=== PATIENT | female | born 1945 | race Caucasian/White ===

== ENCOUNTER 2017-02-07 11:54 | Outpatient (CLI) | payer MEDICARE, BC ==
--- OUTSIDE RECORDS SUMMARY | 2017-02-07 11:57 | XMS | Clinical Summary ---
:1945 Author Organization [facility] Address [address] [place] [address] Phone Care Team Providers Name Role Phone , Primary Care Provider Unavailable Allergies Not on File Current Medications Not on file Active Problems Not on file Social History Tobacco Use Types Packs/Day Years Used Date Never Assessed Sex Assigned at Date Recorded Not on file Last Filed Vital Signs Not on file Plan of Treatment Not on file Results Not on filefrom Last 3 Months
[2017-02-07] MEDS ORDERED: Heparin 1,000 UNITS/ML VIAL ONE (14:31)
--- NOTE | 2017-02-07 15:01 | NM ---
NUCLEAR MEDICINE MUGA SCAN: Date: 02/07/17 CLINICAL HISTORY: Malignant neoplasm of upper outer quadrant of the left breast. Encounter for follow-up after treatme nt for malignant neoplasm of left breast. RADIOPHARMACEUTICAL: 28.2 mCi technetium-99m tagged red cells IV. COMPARISON: 01/07/17. FINDINGS/IMPRESSION: Ejection fraction is calculated at 54.9%. Previous MUGA scan of 01/07/17 revealed ejection fraction of 58%. Slightly reduced LVEF at 54.9%. Correlate clinically. POS: GAMALIEL
== END 2017-02-07 11:55 | disposition home or self-care (01) ==
LOC: NM 11:54
PROVIDERS: ATTEND Internal Medicine Medical Oncology
DX: C50.412 Malignant neoplasm of upper-outer quadrant of left female breast (principal)
CPT/HCPCS: 78472; A9604; J1644

== ENCOUNTER 2017-05-31 08:29 | Outpatient (CLI) | payer MEDICARE, BC | END 2017-05-31 08:30 | disposition home or self-care (01) | LOC: BICMAMMO 08:29 | PROVIDERS: ATTEND Internal Medicine Medical Oncology | DX: Z85.3 Personal history of malignant neoplasm of breast (principal); R92.1 Mammographic calcification found on diagnostic imaging of breast; N64.59 Other signs and symptoms in breast; Z98.890 Other specified postprocedural states | CPT/HCPCS: G0204; G0279; 77066 ==

== ENCOUNTER 2017-08-02 13:19 | Outpatient (CLI) | payer MEDICARE, BC ==
--- NOTE | 2017-08-02 15:30 | CT ---
CT THORAX WITHOUT IV CONTRAST: INDICATIONS: History of thoracic aortic aneurysm. COMPARISON: None. FINDINGS: There is post procedural change, consistent with radiation therapy to the left breast, with some radi ation fibrotic change involving the left upper lobe. There is some architectural distortion and mass like density seen within the upper aspect of the left breast, with an additional nodule see within t he left axillary region. Comparison to recent diagnostic mammogram is recommended. There are scattered calcified lymph nodes within the left hilar region. There are thoracic aortic ca lcifications present. The ascending thoracic aorta measures 3.3 cm. The aortic arch measures 2.9 cm . The descending thoracic aorta, at the level of the right main pulmonary artery, measures 2.8 cm. There is some mild interstitial fibrotic change involving the right lower lobe. No suspicious pulmon holland nodule, pleural effusion, or pneumothorax evident. There is a right chest wall port in place. The upper abdomen is unremarkable for an acute abnormality. There is mild thoracic scoliosis. There is scattered degenerative and osteoarthritic change. IMPRESSION: 1. Mild ectasia of the ascending aorta. 2. Findings of prior granulomatous disease. 3. Densities seen within the left breast, which may be related to the patient's prior left breast ca ncer. Followup with most recent left breast diagnostic mammogram is recommended. 4. Radiation therapy changes to the left breast, as well as left upper lobe. 5. Mild interstitial fibrotic change involving the right lower lobe. 6. Findings of prior granulomatous disease. POS: GAMALIEL
== END 2017-08-02 13:20 | disposition home or self-care (01) ==
LOC: SCSCT 13:19
PROVIDERS: ATTEND Internal Medicine Cardiovascular Disease
DX: I71.2 Thoracic aortic aneurysm, without rupture (principal); I77.819 Aortic ectasia, unspecified site; N64.89 Other specified disorders of breast; Z51.0 Encounter for antineoplastic radiation therapy; Z92.3 Personal history of irradiation
CPT/HCPCS: 71250

== ENCOUNTER 2017-11-28 07:54 | Outpatient (CLI) | payer MEDICARE, BC | END 2017-11-28 07:55 | disposition home or self-care (01) | LOC: BICMAMMO 07:54 | PROVIDERS: ATTEND Internal Medicine Medical Oncology | DX: C50.412 Malignant neoplasm of upper-outer quadrant of left female breast (principal); N64.89 Other specified disorders of breast; Z98.890 Other specified postprocedural states | CPT/HCPCS: 77065; G0279 ==

== ENCOUNTER 2018-06-01 07:54 | Outpatient (CLI) | payer MEDICARE, BC | END 2018-06-01 07:55 | disposition home or self-care (01) | LOC: BICMAMMO 07:54 | PROVIDERS: ATTEND Internal Medicine Medical Oncology | DX: Z08 Encounter for follow-up examination after completed treatment for malignant neoplasm (principal); Z85.3 Personal history of malignant neoplasm of breast | CPT/HCPCS: 77066; G0279 ==

== ENCOUNTER 2018-07-18 09:50 | Outpatient (CLI) | payer MEDICARE, BC ==
--- NOTE | 2018-07-18 11:06 | BD ---
Exam: DEXA Bone Density History: Post-menopausal. Lumbar Spine: BMD (g/cm2) L1 0.886 T-Score: -0.9 L2 1.063 T-Score: 0.3 L3 0.977 T-Score: -1.0 L4 1.073 T-Score: 0.1 L1-L4 1.004 T-Score: -0.4 Femoral Neck: 0.550 T-Score: -2.7 Total Femur: 0.661 T-Score: -2.3 Impression: Osteoporosis of the left femoral neck with normal bone mineral density of the lumbar spine. POS: TPC
== END 2018-07-18 09:51 | disposition home or self-care (01) ==
LOC: BICMAMMO 09:50
PROVIDERS: ATTEND Internal Medicine Medical Oncology
DX: N95.0 Postmenopausal bleeding (principal); C50.412 Malignant neoplasm of upper-outer quadrant of left female breast; T38.6X5A Adverse effect of antigonadotrophins, antiestrogens, antiandrogens, not elsewhere classified, initial encounter; M81.0 Age-related osteoporosis without current pathological fracture
CPT/HCPCS: 77080

== ENCOUNTER 2019-06-04 08:01 | Outpatient (CLI) | payer MEDICARE, BC ==
--- NOTE | 2019-06-04 08:41 | MMO ---
Bilateral MAMMO Bilat Diag DDI+MITALI. CLINICAL HISTORY: Patient is 74 years old and is seen for diagnostic exam. The patient has no family history of breast cancer. The patient has a history of lumpectomy procedure revealed invasive ductal left breast carcinoma in June,; Ultrasound guided core biopsy procedure revealed invasive ductal left breast carcinoma in May, and moderately differentiated infiltrating ductal carcinoma. in the left breast in 2016. The patient has a history of left Ultrasound Guided Core Biopsy in May, and left Lumpectomy in May, - malignant. VIEWS: The views performed were: bilateral craniocaudal with tomosynthesis; bilateral mediolateral oblique with tomosynthesis; and bilateral mediolateral with tomosynthesis. FILMS COMPARED: The present examination has been compared to prior imaging studies performed at [facility] on 05/28/2016, 05/31/2017, 11/28/2017 and 06/01/2018. This study has been interpreted with the assistance of computer-aided detection. MAMMOGRAM FINDINGS: There are scattered fibroglandular densities. There are stable post operative changes seen in the left breast. There are no suspicious masses, suspicious calcifications, or new areas of architectural distortion. IMPRESSION: THERE IS NO MAMMOGRAPHIC EVIDENCE OF MALIGNANCY. A ROUTINE FOLLOW-UP MAMMOGRAM IN 1 YEAR IS RECOMMENDED. THE RESULTS OF THIS EXAM WERE SENT TO THE PATIENT. ACR BI-RADS Category 2 - Benign finding MAMMOGRAPHY NOTE: 1. A negative mammogram report should not delay a biopsy if a dominant of clinically suspicious mass is present. 2. Approximately 10% to 15% of breast cancers are not detected by mammography. 3. Adenosis and dense breasts may obscure an underlying neoplasm. Reported by: ROSARIO MC MD Electonically Signed: [id number]
== END 2019-06-04 08:02 | disposition home or self-care (01) ==
LOC: BICMAMMO 08:01
PROVIDERS: ATTEND Internal Medicine Medical Oncology
DX: C50.912 Malignant neoplasm of unspecified site of left female breast (principal); M81.8 Other osteoporosis without current pathological fracture
CPT/HCPCS: 77066; G0279

== ENCOUNTER 2019-07-20 08:04 | Outpatient (CLI) | payer MEDICARE, BC ==
--- NOTE | 2019-07-20 10:32 | BD ---
DEXA BONE MINERAL DENSITY STUDY: HISTORY: Osteoporosis screening. COMPARISON: DEXA from 2019. FINDINGS: Lumbar Spine: BMD (g/cm2) L1 0.956 T-Score: -0.3 1.7 L2 1.174 T-Score: 1.3 3.6 L3 1.056 T-Score: -0.3 2.1 L4 1,138 T-Score: 0.7 3.2 L1-L4 1.082 T-Score: 0.3 2.6 Change from the comparison was +7.8%, statistically significant. Left: Femoral Neck: 0.570 T-Score: -2.5 -0.5 Total Femur: 0.651 T-Score: -2.4 -0.7 Change from the comparison was -1.5%, not statistically significant. WHO CLASSIFICATION: Osteoporosis. Impression: Osteoporosis with elevated fracture risk. POS: CET
== END 2019-07-20 08:05 | disposition home or self-care (01) ==
LOC: BICMAMMO 08:04
PROVIDERS: ATTEND Internal Medicine Medical Oncology
DX: M81.0 Age-related osteoporosis without current pathological fracture (principal); Z78.0 Asymptomatic menopausal state
CPT/HCPCS: 77080

== ENCOUNTER 2019-09-28 09:28 | Outpatient (CLI) | payer MEDICARE, BC ==
--- NOTE | 2019-09-28 10:11 | RAD ---
Exam:2 views left hip HISTORY: Pain. Osteoporosis. COMPARISON: None FINDINGS: Contour of the femoral head is maintained. Hip joint spaces preserved. No fracture or malal ignment. IMPRESSION: No fracture or malalignment.
--- NOTE | 2019-09-28 10:13 | RAD ---
2 VIEWS LEFT FEMUR: Date: 09/28/2019 COMPARISON: None. HISTORY: Left thigh pain. FINDINGS: 2 views of the left femur show no evidence of acute fracture or dislocation. No degenerative changes are seen. No soft tissue swelling is seen. IMPRESSION: No evidence of acute osseous abnormality. POS: EAA
== END 2019-09-28 09:29 | disposition home or self-care (01) ==
LOC: BICRAD 09:28
PROVIDERS: ATTEND Internal Medicine Medical Oncology
DX: M25.552 Pain in left hip (principal); M79.652 Pain in left thigh; M81.0 Age-related osteoporosis without current pathological fracture; C50.412 Malignant neoplasm of upper-outer quadrant of left female breast

== ENCOUNTER 2020-06-18 08:51 | Outpatient (CLI) | payer MEDICARE, BC ==
--- NOTE | 2020-06-18 09:30 | MMO ---
Bilateral MAMMO Bilat Diag DDI+MITALI. CLINICAL HISTORY: Patient is 75 years old and is seen for diagnostic exam. The patient has no family history of breast cancer. The patient has a history of lumpectomy procedure revealed invasive ductal left breast carcinoma in June,; Ultrasound guided core biopsy procedure revealed invasive ductal left breast carcinoma in May, and moderately differentiated infiltrating ductal carcinoma. in the left breast in 2016. The patient has a history of left Ultrasound Guided Core Biopsy in May, and left Lumpectomy in May, - malignant. VIEWS: The views performed were: bilateral craniocaudal with tomosynthesis; bilateral mediolateral oblique with tomosynthesis; and bilateral mediolateral with tomosynthesis. FILMS COMPARED: The present examination has been compared to prior imaging studies performed at [facility] on 05/31/2017, 11/28/2017, 06/01/2018 and 06/04/2019. This study has been interpreted with the assistance of computer-aided detection. MAMMOGRAM FINDINGS: There are scattered fibroglandular densities. There are benign appearing calcifications seen in both breasts. There are stable post-operative changes left breast. There are no suspicious masses, suspicious calcifications, or new areas of architectural distortion. IMPRESSION: THERE IS NO MAMMOGRAPHIC EVIDENCE OF MALIGNANCY. A ROUTINE FOLLOW-UP MAMMOGRAM IN 1 YEAR IS RECOMMENDED. THE RESULTS OF THIS EXAM WERE SENT TO THE PATIENT. ACR BI-RADS Category 2 - Benign finding MAMMOGRAPHY NOTE: 1. A negative mammogram report should not delay a biopsy if a dominant of clinically suspicious mass is present. 2. Approximately 10% to 15% of breast cancers are not detected by mammography. 3. Adenosis and dense breasts may obscure an underlying neoplasm. Reported by: FERNY FITZPATRICK MD Electonically Signed: [id number]
== END 2020-06-18 08:52 | disposition home or self-care (01) ==
LOC: BICMAMMO 08:51
PROVIDERS: ATTEND Internal Medicine Medical Oncology
DX: C50.412 Malignant neoplasm of upper-outer quadrant of left female breast (principal); D51.8 Other vitamin B12 deficiency anemias; M81.8 Other osteoporosis without current pathological fracture
CPT/HCPCS: 77066; G0279

== ENCOUNTER 2020-07-21 08:59 | Outpatient (CLI) | payer MEDICARE, BC | END 2020-07-21 09:00 | disposition home or self-care (01) | LOC: BICMAMMO 08:59 | PROVIDERS: ATTEND Internal Medicine Medical Oncology | DX: M81.8 Other osteoporosis without current pathological fracture (principal); M85.852 Other specified disorders of bone density and structure, left thigh | CPT/HCPCS: 77080 ==

== ENCOUNTER 2021-01-17 12:52 | Emergency (ER) | payer MEDICARE, BC ==
[~2021-01-17 12:52] MED LIST: Iopamidol-370 76% 500 ML 1 ML ONE
[2021-01-17 13:29] LABS: #Eosinphils 0.1 thou/uL (0.0-0.7); #Lymphocytes 1.2 thou/uL (1.20-3.40); #Monocytes 1.1 thou/uL (0.11-0.59); #Neutrophils 8.7 thou/uL (1.40-6.50); %Monocytes 9.6 % (0.0-10.0); %Neutrophils 78.4 % (42.0-75.0); Hemoglobin 12.2 g/dL (12.0-16.0); Mean Corpuscular HGB CONC 34.4 g/dL (32.0-36.0); Mean Corpuscular Hemoglobin 30.1 pg (27.0-31.0); Mean Corpuscular Volume 87.6 fL (78.0-98.0); Mean Platelet Volume 7.1 fL (7.4-10.4); Platelet Count 313 thou/uL (130-400); RBC Distribution Width 13.4 % (11.5-14.5); Red Blood Cell (RBC) Count 4.05 mill/uL (4.20-5.40); White Blood Cell (WBC) Count 11.1 thou/uL (4.8-10.8)
[2021-01-17 13:48] LABS: ALT (SGPT) 9 U/L (8-55); AST (SGOT) 13 U/L (5-34); Albumin 4.1 g/dL (3.4-4.8); Alkaline Phosphatase 68 U/L (40-110); Anion Gap 14 mmol/L (10-20); BUN (Urea Nitrogen) 16 mg/dL (9.8-20.1); Bilirubin, Total 0.7 mg/dL (0.2-1.2); Calc. Creatinine Clearance 0 mL/min (70-130); Calcium 9.6 mg/dL (7.8-10.44); Carbon Dioxide 24 mmol/L (23-31); Chloride 100 mmol/L (98-107); Globulin 2.5 g/dL (2.4-3.5); Glucose 120 mg/dL (83-110); Potassium 4.2 mmol/L (3.5-5.1); Protein, Total 6.6 g/dL (5.8-8.1); Sodium 134 mmol/L (136-145)
[2021-01-17 16:46] LABS: Troponin I 0.015 ng/mL (< 0.028)
[2021-01-17] MEDS ORDERED: Acetaminophen 500 MG TAB ONE (17:29)
== END 2021-01-17 17:47 | disposition home or self-care (01) ==
LOC: ERS 12:52
DX: D64.9 Anemia, unspecified (principal); R07.89 Other chest pain; I10 Essential (primary) hypertension; E78.00 Pure hypercholesterolemia, unspecified; Z79.82 Long term (current) use of aspirin; Z79.899 Other long term (current) drug therapy
CPT/HCPCS: 36415; 71045; 71275; 74174; 80053; 84484; 85025; 93005; Q9967

== ENCOUNTER 2021-02-23 09:24 | Day surgery (SDC) | payer MEDICARE, BC ==
[2021-02-23] MEDS ORDERED: Fentanyl 100 MCG/2 ML VIAL ONE ×3 (11:47→13:18)
[2021-02-23] MEDS ORDERED: Dexamethasone 20 MG/5 ML VIAL ONE (13:30)
[2021-02-23] MEDS ORDERED: Lidocaine 1% PF 5 ML VIAL ONE (13:30)
[2021-02-23] MEDS ORDERED: PROPOFOL 200 MG/20 ML VIAL ONE (13:30)
[2021-02-23] MEDS ORDERED: PHENYLEPHRINE-NS 100 MCG/ML 10 ML SYRINGE ONE (13:30)
[2021-02-23] MEDS ORDERED: Ondansetron PF 4 MG/2 ML Vial ONE (13:30)
== END 2021-02-23 15:48 | disposition home or self-care (01) ==
LOC: MRI 09:24
PROVIDERS: ATTEND Family Medicine Sports Medicine
DX: M51.36 Other intervertebral disc degeneration, lumbar region (principal); M48.061 Spinal stenosis, lumbar region without neurogenic claudication; M48.07 Spinal stenosis, lumbosacral region; I10 Essential (primary) hypertension; M25.78 Osteophyte, vertebrae; Z85.3 Personal history of malignant neoplasm of breast; Z79.899 Other long term (current) drug therapy
CPT/HCPCS: 72148; J1100; J2405; J2704; J3010

== ENCOUNTER 2021-03-02 09:42 | Outpatient (CLI) | payer MEDICARE, BC ==
[2021-03-02 23:42] LABS: SARS-CoV-2 PCR by NAA Not Detected (NotDetected)
== END 2021-03-02 09:43 | disposition home or self-care (01) ==
LOC: LABBT 09:42
PROVIDERS: ATTEND Internal Medicine Medical Oncology
DX: Z01.812 Encounter for preprocedural laboratory examination (principal); Z20.822 Contact with and (suspected) exposure to COVID-19
CPT/HCPCS: U0003; U0005

== ENCOUNTER 2021-03-05 07:52 | Day surgery (SDC) | payer MEDICARE, BC ==
[2021-03-04 10:14] VITALS: BMI 19.8
[2021-03-05 08:36] LABS: PTT 30.3 sec (22.9-36.1); Prothrombin Time 13.1 sec (12.0-14.7)
[2021-03-05 10:06] VITALS: BP 155/89; TEMP 98.2
== END 2021-03-05 09:40 | disposition short-term general hospital (02) ==
LOC: CT 07:52
PROVIDERS: ATTEND Internal Medicine Medical Oncology
DX: C50.412 Malignant neoplasm of upper-outer quadrant of left female breast (principal); D64.9 Anemia, unspecified; Z53.8 Procedure and treatment not carried out for other reasons
CPT/HCPCS: 85610; 85730

== ENCOUNTER 2021-03-05 09:31 | Emergency (ER) | payer MEDICARE, BC ==
[2021-03-05] MEDS ORDERED: Acetaminophen 500 MG TAB ONE (10:06)
[2021-03-05] MEDS ORDERED: Acetaminophen/Codeine 30-300mg Tablet ONE (10:10)
[2021-03-05 10:28] LABS: Bilirubin Negative (Negative); Blood, Urine Negative (Negative); Clarity Clear (Clear); Glucose, Urine (Dipstick) Normal (Negative); Ketone, Urine Negative (Negative); Leukocyte Negative Leu/uL (Negative); Nitrite Negative (Negative); Protein, Urine (Dipstick) Negative (Neg-Trace); Specific Gravity, Urine 1.007 (1.002-1.036); Urobilinogen Normal mg/dL (Less than 2); pH, Urine 7.5 (5.0-9.0)
== END 2021-03-05 11:05 | disposition home or self-care (01) ==
LOC: ERS 09:31
DX: M54.50 Low back pain, unspecified (principal); I10 Essential (primary) hypertension; E78.00 Pure hypercholesterolemia, unspecified; Z79.82 Long term (current) use of aspirin; Z79.899 Other long term (current) drug therapy; C50.412 Malignant neoplasm of upper-outer quadrant of left female breast; D64.9 Anemia, unspecified; Z53.8 Procedure and treatment not carried out for other reasons
CPT/HCPCS: 81003; 85610; 85730; 99283

== ENCOUNTER 2021-03-25 09:23 | Outpatient (CLI) | payer MEDICARE, BC ==
[2021-03-26 11:56] LABS: SARS-CoV-2 PCR by NAA Not Detected (NotDetected)
== END 2021-03-25 09:24 | disposition home or self-care (01) ==
LOC: LABBT 09:23
PROVIDERS: ATTEND Internal Medicine Medical Oncology
DX: Z01.812 Encounter for preprocedural laboratory examination (principal); Z20.822 Contact with and (suspected) exposure to COVID-19
CPT/HCPCS: U0003; U0005

== ENCOUNTER 2021-03-30 10:40 | Day surgery (SDC) | payer MEDICARE, BC ==
[2021-03-27 11:34] VITALS: BMI 18.8
[2021-03-30] MEDS ORDERED: Morphine 4 MG/ML VIAL ONE ×2 (12:18→14:22)
[2021-03-30] MEDS ORDERED: Fentanyl 100 MCG/2 ML VIAL ONE (14:56)
[2021-03-30] MEDS ORDERED: Midazolam HCl 2 mg/2 ml Vial ONE (14:56)
[2021-03-30] MEDS ORDERED: Glycopyrrolate 0.2 MG/ML 5 ML SYRINGE ONE (15:30)
[2021-03-30] MEDS ORDERED: Lidocaine 1% PF 5 ML VIAL ONE (15:30)
[2021-03-30] MEDS ORDERED: PHENYLEPHRINE-NS 100 MCG/ML 10 ML SYRINGE ONE (15:30)
[2021-03-30] MEDS ORDERED: PROPOFOL 200 MG/20 ML VIAL ONE (15:30)
[2021-03-30] MEDS ORDERED: Ketorolac Tromethamine 30 MG/ML VIAL ONE (15:30)
[2021-03-30] MEDS ORDERED: Dexamethasone 20 MG/5 ML VIAL ONE (15:30)
[2021-03-30] MEDS ORDERED: Rocuronium Bromide 10 MG/ML (10ML VIAL) ONE (15:30)
[2021-03-30] MEDS ORDERED: Ondansetron PF 4 MG/2 ML Vial ONE (15:30)
[2021-03-30] MEDS ORDERED: SUGAMMADEX SODIUM 200 MG/2 ML VIAL ONE (16:37)
== END 2021-03-30 17:55 | disposition home or self-care (01) ==
LOC: SDC/OP 10:40
PROVIDERS: ATTEND Internal Medicine Medical Oncology
PROC: 07DR3ZX Extraction of Iliac Bone Marrow, Percutaneous Approach, Diagnostic (ICD-10-PCS; principal; 2021-03-30)
DX: C50.412 Malignant neoplasm of upper-outer quadrant of left female breast (principal); D51.8 Other vitamin B12 deficiency anemias; I10 Essential (primary) hypertension; E78.00 Pure hypercholesterolemia, unspecified; M81.8 Other osteoporosis without current pathological fracture; Z87.891 Personal history of nicotine dependence; Z79.811 Long term (current) use of aromatase inhibitors; Z79.82 Long term (current) use of aspirin; Z79.899 Other long term (current) drug therapy
CPT/HCPCS: 20225; 77012; 88184; 88237; 88264; 88280; J1100; J1885; J2250; J2270; J2405; J2704; J3010

== ENCOUNTER 2021-04-08 14:10 | Outpatient (CLI) | payer MEDICARE, BC ==
[2021-04-08 15:36] LABS: Hemoglobin 8.8 g/dL (12.0-15.5); Mean Corpuscular HGB CONC 30.6 g/dL (32.0-36.0); Mean Corpuscular Hemoglobin 28.9 pg (27.0-33.0); Mean Corpuscular Volume 94.7 fl (81.6-98.3); Mean Platelet Volume 9.8 fl (7.4-10.4); Platelet Count 315 10x3/uL (150-450); RBC Distribution Width 16.9 % (11.5-14.5); Red Blood Cell (RBC) Count 3.04 10x6/uL (3.90-5.03); White Blood Cell (WBC) Count 5.5 10x3/uL (3.5-10.5)
[2021-04-08 15:58] LABS: Anion Gap 11 mmol/L (10-20); BUN (Urea Nitrogen) 16 mg/dL (9.8-20.1); Calc. Creatinine Clearance 0 mL/min (70-130); Calcium 9.3 mg/dL (7.8-10.44); Carbon Dioxide 26 mmol/L (23-31); Chloride 108 mmol/L (98-107); Glucose 99 mg/dL (83-110); Potassium 4.4 mmol/L (3.5-5.1); Sodium 141 mmol/L (136-145)
[2021-04-09 00:40] LABS: SARS-CoV-2 PCR by NAA Not Detected (NotDetected)
== END 2021-04-08 14:11 | disposition home or self-care (01) ==
LOC: LABBT 14:10
PROVIDERS: ATTEND Neurological Surgery
DX: Z01.818 Encounter for other preprocedural examination (principal); C50.412 Malignant neoplasm of upper-outer quadrant of left female breast; D53.9 Nutritional anemia, unspecified; M81.8 Other osteoporosis without current pathological fracture; Z20.822 Contact with and (suspected) exposure to COVID-19
CPT/HCPCS: 80048; 85027; 93005; U0003; U0005; 93010

== ENCOUNTER 2021-04-13 06:44 | Day surgery (SDC) | payer MEDICARE, BC ==
[2021-04-09 14:00] VITALS: BMI 19.3
[2021-04-13] MEDS ORDERED: ceFAZolin 2 GM/DEX 5% 100 ML BAG ONE (07:48)
[2021-04-13] MEDS ORDERED: Fentanyl 100 MCG/2 ML VIAL ONE (09:11)
[2021-04-13] MEDS ORDERED: SUGAMMADEX SODIUM 200 MG/2 ML VIAL ONE (10:11)
[2021-04-13] MEDS ORDERED: Fentanyl 250 MCG/5 ML VIAL ONE (10:11)
[2021-04-13] MEDS ORDERED: Dexamethasone 20 MG/5 ML VIAL ONE (10:20)
[2021-04-13] MEDS ORDERED: Lidocaine 1% PF 5 ML VIAL ONE (10:20)
[2021-04-13] MEDS ORDERED: PROPOFOL 200 MG/20 ML VIAL ONE (10:20)
[2021-04-13] MEDS ORDERED: Ondansetron PF 4 MG/2 ML Vial ONE (10:20)
[2021-04-13] MEDS ORDERED: Phenylephrine 10 MG/ML VIAL ONE (10:20)
[2021-04-13] MEDS ORDERED: Rocuronium Bromide 10 MG/ML (10ML VIAL) ONE (10:20)
[2021-04-13] MEDS ORDERED: HYDROcodone/Acetaminophen 5/325 mg Tablet ONE (13:24)
== END 2021-04-13 14:16 | disposition home or self-care (01) ==
LOC: SDC 06:44
PROVIDERS: ATTEND Neurological Surgery
PROC: 0QB00ZZ Excision of Lumbar Vertebra, Open Approach (ICD-10-PCS; principal; 2021-04-13)
DX: M71.38 Other bursal cyst, other site (principal); M54.16 Radiculopathy, lumbar region; J43.9 Emphysema, unspecified; D53.9 Nutritional anemia, unspecified; I10 Essential (primary) hypertension; Z85.3 Personal history of malignant neoplasm of breast; Z79.811 Long term (current) use of aromatase inhibitors; Z79.899 Other long term (current) drug therapy
CPT/HCPCS: 76000; 86850; 86900; 86901; J1100; J2370; J2405; J2704; J3010; J3370

== ENCOUNTER 2021-04-21 14:37 | Outpatient (CLI) | payer MEDICARE, BC | END 2021-04-21 14:38 | disposition home or self-care (01) | LOC: ULT 14:37 | PROVIDERS: ATTEND Internal Medicine Medical Oncology | DX: M79.605 Pain in left leg (principal); R60.0 Localized edema; M79.604 Pain in right leg | CPT/HCPCS: 36415; 80053; 82248; 83615; 84100; 84550; 85025; 93970 ==

== ENCOUNTER 2021-06-19 09:57 | Day surgery (SDC) | payer MEDICARE, BC ==
[2021-06-15 13:41] VITALS: BMI 18.8
[2021-06-19] MEDS ORDERED: Ondansetron PF 4 MG/2 ML Vial ONE (12:30)
[2021-06-19] MEDS ORDERED: Lidocaine 1% PF 5 ML VIAL ONE (12:30)
[2021-06-19] MEDS ORDERED: PROPOFOL 200 MG/20 ML VIAL ONE (12:30)
[2021-06-19] MEDS ORDERED: Fentanyl 250 MCG/5 ML VIAL ONE (12:32)
[2021-06-19] MEDS ORDERED: Midazolam HCl 2 mg/2 ml Vial ONE (12:32)
== END 2021-06-19 14:50 | disposition home or self-care (01) ==
LOC: MRI 09:57
PROVIDERS: ATTEND Family Medicine
DX: R47.01 Aphasia (principal); I10 Essential (primary) hypertension; E78.5 Hyperlipidemia, unspecified; Z85.3 Personal history of malignant neoplasm of breast; Z79.811 Long term (current) use of aromatase inhibitors; Z79.899 Other long term (current) drug therapy
CPT/HCPCS: 70551; J2250; J2405; J2704; J3010

== ENCOUNTER 2021-10-07 10:48 | Outpatient (CLI) | payer MEDICARE, BC | END 2021-10-07 10:49 | disposition home or self-care (01) | LOC: CT 10:48 | PROVIDERS: ATTEND Psychiatry & Neurology Neurology | DX: R47.9 Unspecified speech disturbances (principal) | CPT/HCPCS: 70470; 95816; 95957 ==

== ENCOUNTER 2022-07-02 08:00 | Outpatient (CLI) | payer MEDICARE, BC | END 2022-07-02 08:01 | disposition home or self-care (01) | LOC: PET 08:00 | PROVIDERS: ATTEND Psychiatry & Neurology Neurology | DX: R41.3 Other amnesia (principal) | CPT/HCPCS: 78803; A9552 ==

== ENCOUNTER 2022-07-07 09:36 | Outpatient (CLI) | payer MEDICARE, BC | END 2022-07-07 09:37 | disposition home or self-care (01) | LOC: NM 09:36 | PROVIDERS: ATTEND Psychiatry & Neurology Neurology | DX: R41.3 Other amnesia (principal) | CPT/HCPCS: 78803; A9584 ×2 ==

== ENCOUNTER 2023-06-29 11:24 | Inpatient (IN) | payer MEDICARE, BC ==
[~2023-06-29 11:24] MED LIST changes: -Iopamidol-370 76% 500 ML 1 ML ONE; +Iopamidol-370 76% 500 ML MDV (1 ML CHARGE) ONE
[2023-06-29] MEDS ORDERED: Boostrix 0.5 ML (Tdap) VIAL (>/=7 yrs of age) ONE (13:50)
[2023-06-29] MEDS ORDERED: CEFAZOLIN 1 GM VIAL ONE (13:50)
[2023-06-29] MEDS ORDERED: Sodium Chloride 0.9% 100 ML ONE (13:51)
[2023-06-29] MEDS ORDERED: Morphine 4 MG/ML VIAL ONE (14:50)
[2023-06-29 15:31] LABS: #Eosinphils 0.1 thou/uL (0.0-0.7); #Monocytes 0.7 thou/uL (0.11-0.59); #Neutrophils 5.9 thou/uL (1.40-6.50); %Basophils 0.3 % (0.0-1.0); %Eosinophils 1.3 % (0.0-10.0); %Lymphocytes 12.9 % (21.0-51.0); %Monocytes 9.4 % (0.0-10.0); %Neutrophils 75.6 % (42.0-75.0); Hematocrit 33.2 % (36.0-47.0); Hemoglobin 10.7 g/dL (12.0-16.0); Mean Corpuscular HGB CONC 32.2 g/dL (32.0-36.0); Mean Corpuscular Hemoglobin 29.6 pg (27.0-31.0); Mean Corpuscular Volume 91.7 fl (78.0-98.0); Mean Platelet Volume 10.2 fL (7.4-10.4); Platelet Count 342 10x3/uL (130-400); RBC Distribution Width 14.8 % (11.5-14.5); Red Blood Cell (RBC) Count 3.62 mill/uL (4.20-5.40); White Blood Cell (WBC) Count 7.9 10x3/uL (4.8-10.8)
[2023-06-29] MEDS ORDERED: Dextrose 5% in Water 1,000 ML IV PRN (15:36)
[2023-06-29] MEDS ORDERED: Glucagon 1 MG/ML KIT IM PRN (15:36)
[2023-06-29] MEDS ORDERED: Ondansetron ODT 4 MG TAB PO PRN (15:36)
[2023-06-29] MEDS ORDERED: Ondansetron PF 4 MG/2 ML Vial IVP PRN (15:36)
[2023-06-29] MEDS ORDERED: Dextrose 50% Abboject 50 ML SYRINGE SLOW IVP PRN (15:36)
[2023-06-29 16:27] LABS: ALT (SGPT) 14 U/L (8-55); AST (SGOT) 27 U/L (5-34); Albumin 4.1 g/dL (3.4-4.8); Alkaline Phosphatase 117 U/L (40-110); Anion Gap 14 mmol/L (10-20); BUN (Urea Nitrogen) 14 mg/dL (9.8-20.1); Bilirubin, Total 0.6 mg/dL (0.2-1.2); CK (CPK) 392 U/L (29-168); Calc. Creatinine Clearance 0 mL/min (70-130); Calcium 9.4 mg/dL (7.8-10.44); Carbon Dioxide 21 mmol/L (23-31); Chloride 106 mmol/L (98-107); Estimated GFR 58; Globulin 2.4 g/dL (2.4-3.5); Glucose 92 mg/dL (83-110); Lipase 30 U/L (8-78); Protein, Total 6.5 g/dL (5.8-8.1); Sodium 137 mmol/L (136-145)
[2023-06-29 16:29] LABS: Troponin I Less than 0.010 ng/mL (< 0.028)
[2023-06-29 21:43] VITALS: BMI 19.3
[2023-06-29] MEDS: Acetaminophen 325 MG TAB PO PRN (22:05)
[2023-06-29] MEDS: TETANUS, DIPHTHERIA TOX,ADULT (TDVAX) 0.5 ML VIAL IM ONE (22:06)
[2023-06-29] MEDS: CEFAZOLIN 2 GM in Sodium Chloride 0.9% 100 ML IVPB SCH (22:07)
[2023-06-30] MEDS: Acetaminophen/Codeine 30-300mg Tablet PO PRN (04:32)
[2023-06-30 04:40] LABS: #Neutrophils 4.5 thou/uL (1.40-6.50); %Basophils 0.2 % (0.0-1.0); %Eosinophils 0.5 % (0.0-10.0); %Monocytes 14.8 % (0.0-10.0); Hematocrit 28.3 % (36.0-47.0); Hemoglobin 9.1 g/dL (12.0-16.0); Mean Corpuscular HGB CONC 32.2 g/dL (32.0-36.0); Mean Corpuscular Hemoglobin 29.9 pg (27.0-31.0); Mean Corpuscular Volume 93.1 fl (78.0-98.0); Platelet Count 284 10x3/uL (130-400); Red Blood Cell (RBC) Count 3.04 mill/uL (4.20-5.40); White Blood Cell (WBC) Count 6.5 10x3/uL (4.8-10.8)
[2023-06-30 05:48] LABS: ALT (SGPT) 12 U/L (8-55); AST (SGOT) 28 U/L (5-34); Albumin 3.5 g/dL (3.4-4.8); Alkaline Phosphatase 100 U/L (40-110); Anion Gap 11 mmol/L (10-20); BUN (Urea Nitrogen) 16 mg/dL (9.8-20.1); Bilirubin, Total 0.4 mg/dL (0.2-1.2); Calc. Creatinine Clearance 45 mL/min (70-130); Calcium 8.7 mg/dL (7.8-10.44); Carbon Dioxide 26 mmol/L (23-31); Chloride 106 mmol/L (98-107); Estimated GFR 71; Globulin 2.4 g/dL (2.4-3.5); Glucose 99 mg/dL (83-110); Potassium 3.6 mmol/L (3.5-5.1); Protein, Total 5.9 g/dL (5.8-8.1); Sodium 139 mmol/L (136-145)
[2023-06-30] MEDS ORDERED: CEFAZOLIN 2 GM in Sodium Chloride 0.9% 100 ML IVPB SCH (07:15)
[2023-06-30] MEDS ORDERED: Lidocaine 1% (PF) 30 ML VIAL ONE (11:54)
[2023-06-30] MEDS ORDERED: Bupivacaine PF 0.5% 30 ML VIAL ONE ×2 (11:54→12:19)
[2023-06-30] MEDS ORDERED: Dexamethasone 4 mg/ml Vial ONE (11:54)
[2023-06-30] MEDS ORDERED: EPINEPHrine 1 MG/ML VIAL ONE (12:18)
[2023-06-30] MEDS ORDERED: CEFAZOLIN 2 GM VIAL ONE (12:19)
[2023-06-30] MEDS ORDERED: Sodium Chloride 0.9% 100 ML ONE (12:19)
[2023-06-30] MEDS ORDERED: fentaNYL 50 mcg/mL 1 mL Vial ONE ×2 (12:23→14:25)
[2023-06-30] MEDS ORDERED: PROPOFOL 20 ML ONE (12:44)
[2023-06-30] MEDS ORDERED: fentaNYL PF 100 MCG/2 ML SYRINGE ONE (12:44)
[2023-06-30] MEDS ORDERED: Esmolol 100 MG/10 ML VIAL ONE (12:55)
[2023-06-30] MEDS ORDERED: ePHEDrine Sulfate 50 MG/10 ML VIAL ONE (13:01)
[2023-06-30] MEDS ORDERED: Ropivacaine 0.5% HCl/PF (150 MG/30 ML VIAL) ONE (13:05)
[2023-06-30] MEDS ORDERED: Calcium Chloride 1 GM/10 ML Abboject SYRINGE ONE (13:22)
[2023-06-30] MEDS ORDERED: SUGAMMADEX SODIUM 200 MG/2 ML VIAL ONE (13:50)
[2023-06-30] MEDS ORDERED: Ondansetron PF 4 MG/2 ML Vial ONE (13:51)
[2023-06-30] MEDS ORDERED: Lidocaine 2% PF 5 ML VIAL ONE (13:52)
[2023-06-30] MEDS: Senokot S 8.6-50 MG TAB PO SCH (20:13)
[2023-06-30] MEDS: CEFAZOLIN 2 GM in Sodium Chloride 0.9% 100 ML IVPB SCH (21:38)
[2023-07-01 03:39] LABS: #Neutrophils 8.9 thou/uL (1.40-6.50); %Basophils 0.1 % (0.0-1.0); %Lymphocytes 4.7 % (21.0-51.0); %Monocytes 9.6 % (0.0-10.0); %Neutrophils 85.1 % (42.0-75.0); Hematocrit 28.3 % (36.0-47.0); Hemoglobin 9.2 g/dL (12.0-16.0); Mean Corpuscular HGB CONC 32.5 g/dL (32.0-36.0); Mean Corpuscular Hemoglobin 29.6 pg (27.0-31.0); Platelet Count 310 10x3/uL (130-400); RBC Distribution Width 14.9 % (11.5-14.5); Red Blood Cell (RBC) Count 3.11 mill/uL (4.20-5.40); White Blood Cell (WBC) Count 10.4 10x3/uL (4.8-10.8)
[2023-07-01 04:08] LABS: ALT (SGPT) 11 U/L (8-55); AST (SGOT) 31 U/L (5-34); Albumin 3.8 g/dL (3.4-4.8); Alkaline Phosphatase 101 U/L (40-110); Anion Gap 15 mmol/L (10-20); BUN (Urea Nitrogen) 14 mg/dL (9.8-20.1); Bilirubin, Total 0.5 mg/dL (0.2-1.2); Calc. Creatinine Clearance 40 mL/min (70-130); Calcium 9.2 mg/dL (7.8-10.44); Carbon Dioxide 23 mmol/L (23-31); Chloride 104 mmol/L (98-107); Estimated GFR 61; Globulin 2.6 g/dL (2.4-3.5); Glucose 150 mg/dL (83-110); Potassium 3.8 mmol/L (3.5-5.1); Protein, Total 6.4 g/dL (5.8-8.1); Sodium 138 mmol/L (136-145)
[2023-07-01] MEDS: Enoxaparin 30 MG (0.3 mL) SYRINGE SC SCH (20:49)
[2023-07-01] MEDS: HYDROcodone/Acetaminophen 5/325 mg Tablet PO PRN (23:05)
[2023-07-02] MEDS: Morphine 2 MG/ML VIAL SLOW IVP PRN (00:24)
[2023-07-02 05:24] LABS: #Eosinphils 0.1 thou/uL (0.0-0.7); #Monocytes 1.2 thou/uL (0.11-0.59); #Neutrophils 5.7 thou/uL (1.40-6.50); %Basophils 0.2 % (0.0-1.0); %Eosinophils 0.9 % (0.0-10.0); %Neutrophils 66.3 % (42.0-75.0); Hematocrit 27.5 % (36.0-47.0); Hemoglobin 9.1 g/dL (12.0-16.0); Mean Corpuscular HGB CONC 33.1 g/dL (32.0-36.0); Mean Corpuscular Volume 90.8 fl (78.0-98.0); Mean Platelet Volume 10.1 fL (7.4-10.4); Platelet Count 311 10x3/uL (130-400); RBC Distribution Width 14.7 % (11.5-14.5); Red Blood Cell (RBC) Count 3.03 mill/uL (4.20-5.40); White Blood Cell (WBC) Count 8.7 10x3/uL (4.8-10.8)
[2023-07-02 06:03] LABS: ALT (SGPT) 15 U/L (8-55); AST (SGOT) 77 U/L (5-34); Albumin 3.3 g/dL (3.4-4.8); Alkaline Phosphatase 83 U/L (40-110); Anion Gap 10 mmol/L (10-20); BUN (Urea Nitrogen) 16 mg/dL (9.8-20.1); Bilirubin, Total 0.3 mg/dL (0.2-1.2); Calc. Creatinine Clearance 45 mL/min (70-130); Calcium 8.6 mg/dL (7.8-10.44); Carbon Dioxide 28 mmol/L (23-31); Chloride 104 mmol/L (98-107); Estimated GFR 71; Globulin 2.5 g/dL (2.4-3.5); Glucose 95 mg/dL (83-110); Potassium 3.6 mmol/L (3.5-5.1); Protein, Total 5.8 g/dL (5.8-8.1); Sodium 138 mmol/L (136-145)
[2023-07-02] MEDS: Enoxaparin 40 MG (0.4 mL) SYRINGE SC SCH (20:34)
[2023-07-03] MEDS ORDERED: Simvastatin 20 MG TAB PO SCH (21:00)
[2023-07-03] MEDS: Calcium Carbonate 600 MG TAB PO SCH (21:44)
[2023-07-03] MEDS: Anastrozole 1 MG TAB PO SCH (21:45)
[2023-07-03] MEDS: Carvedilol 3.125 MG TAB PO SCH (21:45)
[2023-07-03] MEDS: Memantine 5 MG TAB PO SCH (21:45)
[2023-07-03] MEDS: Lisinopril 10 MG TAB PO SCH (21:45)
[2023-07-04] MEDS: Levothyroxine Sodium 50 MCG TAB PO SCH (05:53)
[2023-07-04] MEDS: FLUoxetine HCl 20 MG CAP PO SCH (09:48)
[2023-07-05 07:39] VITALS: TEMP 98.5
[2023-07-05 08:07] VITALS: BP 125/76
== END 2023-07-05 10:45 | DRG 493 ==
LOC: ERS 11:24 → ERHOLD 15:44 → SJJU 16:16
PROVIDERS: ADMIT Surgery; ATTEND Surgery
PROC: 0QSH04Z Reposition Left Tibia with Internal Fixation Device, Open Approach (ICD-10-PCS; principal; 2023-06-30)
PROC: 0QBG0ZZ Excision of Right Tibia, Open Approach (ICD-10-PCS; 2023-06-30)
PROC: 3E033XZ Introduction of Vasopressor into Peripheral Vein, Percutaneous Approach (ICD-10-PCS; 2023-06-30)
DX: S82.852B Displaced trimalleolar fracture of left lower leg, initial encounter for open fracture type I or II (principal); S32.019A Unspecified fracture of first lumbar vertebra, initial encounter for closed fracture; I10 Essential (primary) hypertension; E78.5 Hyperlipidemia, unspecified; G30.9 Alzheimer's disease, unspecified; F02.80 Dementia in other diseases classified elsewhere, unspecified severity, without behavioral disturbance, psychotic disturbance, mood disturbance, and anxiety; W19.XXXA Unspecified fall, initial encounter; Z87.891 Personal history of nicotine dependence; Z85.3 Personal history of malignant neoplasm of breast; Z98.51 Tubal ligation status
CPT/HCPCS: 36415; 36416; 70450; 71260; 72125; 74177; 80053; 82550; 83605; 83690; 84484; 85025; 87040; 90471; 90715; 93005; 96374; 96375; C1713; G0390; J0171; J0665; J0690; J1100; J1650; J2001; J2270; J2272; J2405; J2704; J2795; J3010; J3490; Q9967

== ENCOUNTER 2023-10-18 21:10 | Inpatient (IN) | payer MEDICARE, BC ==
[2023-10-18] MEDS ORDERED: Morphine 4 MG/ML VIAL ONE (22:56)
[2023-10-18] MEDS ORDERED: Dextrose 5% in Water 1,000 ML IV PRN (22:56)
[2023-10-18] MEDS ORDERED: Ondansetron PF 4 MG/2 ML Vial IVP PRN (22:56)
[2023-10-18] MEDS ORDERED: Dextrose 50% Abboject 50 ML SYRINGE SLOW IVP PRN (22:56)
[2023-10-18] MEDS ORDERED: hydrALAZINE 20 MG/ML VIAL SLOW IVP PRN (22:56)
[2023-10-18] MEDS ORDERED: Glucagon 1 MG/ML KIT IM PRN (22:56)
[2023-10-18] MEDS ORDERED: Ketorolac Tromethamine 30 MG (1 mL) VIAL ONE (22:56)
[2023-10-18] MEDS ORDERED: Acetaminophen 325 MG TAB PO PRN (22:56)
[2023-10-18] MEDS ORDERED: Ondansetron ODT 4 MG TAB PO PRN (22:56)
[2023-10-18 23:27] LABS: #Basophils 0.04 10x3/uL (0.0-0.2); %Basophils 0.4 % (0.0-1.0); %Eosinophils 2.1 % (0.0-10.0); %Lymphocytes 8.2 % (21.0-51.0); %Monocytes 8.4 % (0.0-10.0); Hematocrit 30.5 % (36.0-47.0); Hemoglobin 9.8 g/dL (12.0-16.0); Mean Corpuscular HGB CONC 32.1 g/dL (32.0-36.0); Mean Corpuscular Hemoglobin 29.3 pg (27.0-31.0); Mean Platelet Volume 9.9 fL (7.4-10.4); Platelet Count 382 10x3/uL (130-400); RBC Distribution Width 15.1 % (11.5-14.5); Red Blood Cell (RBC) Count 3.35 mill/uL (4.20-5.40)
[2023-10-18 23:47] LABS: ALT (SGPT) 10 U/L (8-55); AST (SGOT) 20 U/L (5-34); Albumin 3.2 g/dL (3.4-4.8); Alkaline Phosphatase 116 U/L (40-110); Anion Gap 12 mmol/L (10-20); BUN (Urea Nitrogen) 18 mg/dL (9.8-20.1); Bilirubin, Total 0.4 mg/dL (0.2-1.2); Calc. Creatinine Clearance 0 mL/min (70-130); Calcium 9.5 mg/dL (7.8-10.44); Carbon Dioxide 23 mmol/L (23-31); Chloride 105 mmol/L (98-107); Estimated GFR 79; Globulin 2.9 g/dL (2.4-3.5); Glucose 102 mg/dL (83-110); Potassium 3.6 mmol/L (3.5-5.1); Protein, Total 6.1 g/dL (5.8-8.1)
[2023-10-18 23:48] LABS: Troponin I Less than 0.010 ng/mL (< 0.028)
[2023-10-18 23:57] LABS: Sodium 136 mmol/L (136-145)
[2023-10-19 00:57] VITALS: BMI 17.7
[2023-10-19 04:32] LABS: #Basophils Less than 0.03 10x3/uL (0.0-0.2); %Basophils 0.2 % (0.0-1.0); %Eosinophils 0.9 % (0.0-10.0); %Lymphocytes 8.4 % (21.0-51.0); %Monocytes 8.5 % (0.0-10.0); %Neutrophils 80.8 % (42.0-75.0); Hematocrit 28.1 % (36.0-47.0); Hemoglobin 9.1 g/dL (12.0-16.0); Mean Corpuscular HGB CONC 32.4 g/dL (32.0-36.0); Mean Corpuscular Hemoglobin 29.3 pg (27.0-31.0); Mean Corpuscular Volume 90.4 fL (78.0-98.0); Mean Platelet Volume 10.1 fL (7.4-10.4); Platelet Count 334 10x3/uL (130-400); RBC Distribution Width 14.9 % (11.5-14.5); Red Blood Cell (RBC) Count 3.11 mill/uL (4.20-5.40)
[2023-10-19 04:48] LABS: Anion Gap 12 mmol/L (10-20); BUN (Urea Nitrogen) 20 mg/dL (9.8-20.1); Calc. Creatinine Clearance 48 mL/min (70-130); Calcium 9.2 mg/dL (7.8-10.44); Carbon Dioxide 23 mmol/L (23-31); Chloride 105 mmol/L (98-107); Estimated GFR 79; Glucose 122 mg/dL (83-110); Potassium 3.7 mmol/L (3.5-5.1); Sodium 136 mmol/L (136-145)
[2023-10-19] MEDS: Morphine 2 MG/ML VIAL SLOW IVP PRN (05:32)
[2023-10-19] MEDS: Levothyroxine Sodium 50 MCG TAB PO SCH (05:32)
[2023-10-19] MEDS ORDERED: CEFAZOLIN 2 GM in Sodium Chloride 0.9% 100 ML IVPB SCH (07:30)
[2023-10-19] MEDS: Polyethylene Glycol 3350 17 GM Packet PO SCH (08:15)
[2023-10-19] MEDS: Memantine 5 MG TAB PO SCH (08:16)
[2023-10-19] MEDS: Famotidine 20 MG TAB PO SCH (08:17)
[2023-10-19] MEDS: FLUoxetine HCl 20 MG CAP PO SCH (08:17)
[2023-10-19] MEDS ORDERED: fentaNYL PF 100 MCG/2 ML SYRINGE ONE (12:16)
[2023-10-19] MEDS ORDERED: Dexamethasone 20 MG/5 ML VIAL ONE (12:16)
[2023-10-19] MEDS ORDERED: Ondansetron PF 4 MG/2 ML Vial ONE (12:16)
[2023-10-19] MEDS ORDERED: Lidocaine 1% PF 5 ML VIAL ONE (12:16)
[2023-10-19] MEDS ORDERED: PROPOFOL 20 ML ONE (12:16)
[2023-10-19] MEDS ORDERED: CEFAZOLIN 2 GM VIAL ONE (12:28)
[2023-10-19] MEDS ORDERED: Sodium Chloride 0.9% 100 ML ONE (12:28)
[2023-10-19] MEDS ORDERED: PHENYLEPHRINE-NS 100 MCG/ML 10 ML SYRINGE ONE (12:53)
[2023-10-19] MEDS: Gabapentin 100 MG CAP PO SCH (15:44)
[2023-10-19 18:04] VITALS: BMI 17.7
[2023-10-19] MEDS: Anastrozole 1 MG TAB PO SCH (21:02)
[2023-10-19] MEDS: Calcium Carbonate 600 MG TAB PO SCH (21:02)
[2023-10-19] MEDS: Atorvastatin Calcium 10 MG TAB PO SCH (21:03)
[2023-10-19] MEDS: CEFAZOLIN 2 GM in Sodium Chloride 0.9% 100 ML IVPB SCH (21:03)
[2023-10-19] MEDS: Carvedilol 3.125 MG TAB PO SCH (22:36)
[2023-10-19] MEDS: traMADol HCl 50 MG TAB PO PRN (23:51)
[2023-10-20 08:27] LABS: #Basophils Less than 0.03 10x3/uL (0.0-0.2); #Eosinphils Less than 0.03 10x3/uL (0.0-0.7); %Basophils 0.1 % (0.0-1.0); %Lymphocytes 8.5 % (21.0-51.0); %Monocytes 14.3 % (0.0-10.0); %Neutrophils 76.3 % (42.0-75.0); Hematocrit 26.5 % (36.0-47.0); Hemoglobin 8.5 g/dL (12.0-16.0); Mean Corpuscular HGB CONC 32.1 g/dL (32.0-36.0); Mean Corpuscular Volume 90.4 fL (78.0-98.0); Mean Platelet Volume 10.5 fL (7.4-10.4); Platelet Count 360 10x3/uL (130-400); RBC Distribution Width 15.1 % (11.5-14.5); Red Blood Cell (RBC) Count 2.93 mill/uL (4.20-5.40)
[2023-10-20] MEDS: Mirabegron ER 25 MG ER.TAB PO SCH (08:41)
[2023-10-20] MEDS: Docusate 100 MG CAP PO SCH (08:42)
[2023-10-20] MEDS: Multivit, Therapeutic 1 TAB PO SCH (08:42)
[2023-10-20] MEDS: Cyanocobalamin (Vitamin B-12) 1,000 MCG TAB PO SCH (08:42)
[2023-10-20] MEDS: Lisinopril 20 MG TAB PO SCH (08:42)
[2023-10-20] MEDS: Famotidine 20 MG TAB PO SCH (20:35)
[2023-10-20] MEDS: Enoxaparin 40 MG (0.4 mL) SYRINGE SC SCH (20:36)
[2023-10-21 08:58] VITALS: BP 127/78; TEMP 97.9
== END 2023-10-21 15:48 | DRG 481 ==
LOC: ERS 21:10 → SURG A 22:56
PROVIDERS: ADMIT Surgery; ATTEND Surgery
PROC: 0QS706Z Reposition Left Upper Femur with Intramedullary Internal Fixation Device, Open Approach (ICD-10-PCS; principal; 2023-10-19)
DX: S72.142A Displaced intertrochanteric fracture of left femur, initial encounter for closed fracture (principal); F32.0 Major depressive disorder, single episode, mild; R47.01 Aphasia; I42.8 Other cardiomyopathies; I10 Essential (primary) hypertension; E03.9 Hypothyroidism, unspecified; M81.0 Age-related osteoporosis without current pathological fracture; W18.30XA Fall on same level, unspecified, initial encounter; E78.00 Pure hypercholesterolemia, unspecified; G30.9 Alzheimer's disease, unspecified; F02.80 Dementia in other diseases classified elsewhere, unspecified severity, without behavioral disturbance, psychotic disturbance, mood disturbance, and anxiety; M51.9 Unspecified thoracic, thoracolumbar and lumbosacral intervertebral disc disorder; D64.9 Anemia, unspecified; N32.81 Overactive bladder; R53.1 Weakness; Z85.3 Personal history of malignant neoplasm of breast; Z98.42 Cataract extraction status, left eye; Z98.41 Cataract extraction status, right eye; Z98.51 Tubal ligation status; Z90.89 Acquired absence of other organs; Z79.899 Other long term (current) drug therapy; Z87.81 Personal history of (healed) traumatic fracture; Z79.02 Long term (current) use of antithrombotics/antiplatelets; Z79.82 Long term (current) use of aspirin; Z90.12 Acquired absence of left breast and nipple; Z86.73 Personal history of transient ischemic attack (TIA), and cerebral infarction without residual deficits; Z90.710 Acquired absence of both cervix and uterus; Z98.890 Other specified postprocedural states; Z79.890 Hormone replacement therapy
CPT/HCPCS: 36415; 70450; 71045; 72125; 72170; 80048; 80053; 84484; 85025; 93005; 96374; 96375; C1713; G0390; J1100; J1650; J1885; J2270; J2272; J2405; J2704; J3490

== ENCOUNTER 2023-11-10 16:17 | Inpatient (IN) | payer MEDICARE, BC ==
[2023-11-10 16:35] VITALS: BMI 18.7
[2023-11-10 19:54] LABS: Hemoglobin A1c 4.6 % (4.0-6.0)
[2023-11-10 19:57] LABS: Cardiac Risk 3.1 (Less than 4.5)
[2023-11-10] MEDS: Calcium Carbonate 600 MG TAB PO SCH (20:04)
[2023-11-10] MEDS: Anastrozole 1 MG TAB PO SCH (20:04)
[2023-11-10] MEDS: Memantine 10 MG TAB PO SCH (20:04)
[2023-11-10] MEDS: Lisinopril 20 MG TAB PO SCH (20:04)
[2023-11-10] MEDS: Aspirin 81 mg Enteric Coated Tablet PO SCH (20:04)
[2023-11-10] MEDS: Carvedilol 3.125 MG TAB PO SCH (20:04)
[2023-11-10] MEDS: Gabapentin 100 MG CAP PO SCH (20:05)
[2023-11-10] MEDS: HYDROcodone/Acetaminophen 5/325 mg Tablet PO PRN (20:06)
[2023-11-10] MEDS: Atorvastatin Calcium 10 MG TAB PO SCH (20:06)
[2023-11-11 04:01] LABS: #Basophils 0.04 10x3/uL (0.0-0.2); %Basophils 0.6 % (0.0-1.0); %Eosinophils 6.1 % (0.0-10.0); %Lymphocytes 19.3 % (21.0-51.0); %Monocytes 12.7 % (0.0-10.0); %Neutrophils 59.7 % (42.0-75.0); Hematocrit 28.9 % (36.0-47.0); Mean Corpuscular HGB CONC 31.1 g/dL (32.0-36.0); Mean Corpuscular Hemoglobin 28.4 pg (27.0-31.0); Mean Corpuscular Volume 91.2 fL (78.0-98.0); Mean Platelet Volume 9.9 fL (7.4-10.4); Platelet Count 401 10x3/uL (130-400); RBC Distribution Width 16.7 % (11.5-14.5); Red Blood Cell (RBC) Count 3.17 mill/uL (4.20-5.40)
[2023-11-11 04:20] LABS: ALT (SGPT) 13 U/L (8-55); AST (SGOT) 18 U/L (5-34); Albumin 3.1 g/dL (3.4-4.8); Alkaline Phosphatase 168 U/L (40-110); Anion Gap 16 mmol/L (10-20); BUN (Urea Nitrogen) 23 mg/dL (9.8-20.1); Bilirubin, Total 0.5 mg/dL (0.2-1.2); Calc. Creatinine Clearance 51 mL/min (70-130); Calcium 9.6 mg/dL (7.8-10.44); Carbon Dioxide 21 mmol/L (23-31); Chloride 107 mmol/L (98-107); Estimated GFR 79; Glucose 92 mg/dL (83-110); Potassium 3.7 mmol/L (3.5-5.1); Protein, Total 6.1 g/dL (5.8-8.1); Sodium 140 mmol/L (136-145)
[2023-11-11] MEDS: Levothyroxine Sodium 50 MCG TAB PO SCH (05:00)
[2023-11-11] MEDS: Carvedilol 3.125 MG TAB PO SCH (09:11)
[2023-11-11] MEDS: FLUoxetine HCl 20 MG CAP PO SCH (09:12)
[2023-11-11] MEDS: Enoxaparin 40 MG (0.4 mL) SYRINGE SC SCH (09:12)
[2023-11-11 10:36] VITALS: BMI 18.7
[2023-11-11] MEDS: Lorazepam 2 MG/ML VIAL SLOW IVP PRN (12:27)
[2023-11-12 05:29] LABS: #Basophils 0.03 10x3/uL (0.0-0.2); %Basophils 0.4 % (0.0-1.0); %Eosinophils 4.2 % (0.0-10.0); %Lymphocytes 16.4 % (21.0-51.0); %Monocytes 11.7 % (0.0-10.0); %Neutrophils 66.1 % (42.0-75.0); Hematocrit 29.8 % (36.0-47.0); Hemoglobin 9.6 g/dL (12.0-16.0); Mean Corpuscular HGB CONC 32.2 g/dL (32.0-36.0); Mean Corpuscular Hemoglobin 29.2 pg (27.0-31.0); Mean Corpuscular Volume 90.6 fL (78.0-98.0); Mean Platelet Volume 9.9 fL (7.4-10.4); Platelet Count 400 10x3/uL (130-400); RBC Distribution Width 16.7 % (11.5-14.5); Red Blood Cell (RBC) Count 3.29 mill/uL (4.20-5.40)
[2023-11-12 05:48] LABS: ALT (SGPT) 13 U/L (8-55); AST (SGOT) 20 U/L (5-34); Albumin 3.2 g/dL (3.4-4.8); Alkaline Phosphatase 171 U/L (40-110); Anion Gap 14 mmol/L (10-20); BUN (Urea Nitrogen) 24 mg/dL (9.8-20.1); Bilirubin, Total 0.5 mg/dL (0.2-1.2); Calc. Creatinine Clearance 48 mL/min (70-130); Calcium 9.7 mg/dL (7.8-10.44); Carbon Dioxide 22 mmol/L (23-31); Chloride 107 mmol/L (98-107); Estimated GFR 74; Glucose 92 mg/dL (83-110); Potassium 3.7 mmol/L (3.5-5.1); Protein, Total 6.2 g/dL (5.8-8.1); Sodium 139 mmol/L (136-145)
[2023-11-12] MEDS: Acetaminophen/Codeine 30-300mg Tablet PO PRN (21:11)
[2023-11-13 04:35] LABS: #Basophils 0.04 10x3/uL (0.0-0.2); %Basophils 0.6 % (0.0-1.0); %Eosinophils 5.6 % (0.0-10.0); %Lymphocytes 15.7 % (21.0-51.0); %Monocytes 13.1 % (0.0-10.0); %Neutrophils 63.7 % (42.0-75.0); Hematocrit 31.9 % (36.0-47.0); Hemoglobin 9.8 g/dL (12.0-16.0); Mean Corpuscular HGB CONC 30.7 g/dL (32.0-36.0); Mean Corpuscular Hemoglobin 29.2 pg (27.0-31.0); Mean Corpuscular Volume 94.9 fL (78.0-98.0); Mean Platelet Volume 10.1 fL (7.4-10.4); Platelet Count 373 10x3/uL (130-400); RBC Distribution Width 16.8 % (11.5-14.5); Red Blood Cell (RBC) Count 3.36 mill/uL (4.20-5.40)
[2023-11-13 04:53] LABS: ALT (SGPT) 13 U/L (8-55); AST (SGOT) 18 U/L (5-34); Albumin 3.2 g/dL (3.4-4.8); Alkaline Phosphatase 164 U/L (40-110); Anion Gap 14 mmol/L (10-20); BUN (Urea Nitrogen) 23 mg/dL (9.8-20.1); Bilirubin, Total 0.4 mg/dL (0.2-1.2); Calc. Creatinine Clearance 49 mL/min (70-130); Calcium 10.1 mg/dL (7.8-10.44); Carbon Dioxide 22 mmol/L (23-31); Chloride 107 mmol/L (98-107); Estimated GFR 77; Glucose 99 mg/dL (83-110); Potassium 4.1 mmol/L (3.5-5.1); Protein, Total 6.2 g/dL (5.8-8.1); Sodium 139 mmol/L (136-145)
[2023-11-13 16:27] VITALS: BP 111/70; TEMP 97.9
== END 2023-11-13 18:20 | disposition home health service (06) | DRG 948 ==
LOC: INTOOBSV 16:17 → 2SE 16:17 → OBSVTOIN 11-12 10:36
PROVIDERS: ADMIT Family Medicine; ATTEND Family Medicine
PROC: 4A0D7BZ Measurement of Urinary Pressure, Via Natural or Artificial Opening (ICD-10-PCS; principal; 2023-11-11)
DX: R53.81 Other malaise (principal); I50.32 Chronic diastolic (congestive) heart failure; F05 Delirium due to known physiological condition; D64.9 Anemia, unspecified; E03.9 Hypothyroidism, unspecified; Z85.3 Personal history of malignant neoplasm of breast; E78.5 Hyperlipidemia, unspecified; R79.89 Other specified abnormal findings of blood chemistry; G30.9 Alzheimer's disease, unspecified; M81.0 Age-related osteoporosis without current pathological fracture; G31.01 Pick's disease; I11.0 Hypertensive heart disease with heart failure; Z79.899 Other long term (current) drug therapy; Z79.890 Hormone replacement therapy; F02.80 Dementia in other diseases classified elsewhere, unspecified severity, without behavioral disturbance, psychotic disturbance, mood disturbance, and anxiety
CPT/HCPCS: 36415; 51798; 70551; 80053; 80061; 83036; 84443; 85025; 93005; 93010; 93306; 96372; 96374; G0378; J1650; J2060